=== PATIENT | male | born 1985 | race Two or more races ===

== ENCOUNTER 2017-09-25 05:57 | Emergency (ER) | payer OTHER ==
[~2017-09-25] VITALS: Ht 175.3 cm; Wt 88.5 kg
--- NOTE | 2017-09-25 05:57 | NUR ---
PT BB SELF FROM HOME C/C RIGHT LOWER BACK PAIN 11/27, +N/V. -DYSURIA. PT STATES "HX OF KIDNEY STONES, FEELS LIKE THE SAME THING". PT AMBULATED TO BED WITH A STEADY GAIT. PT SITTING IN BED IN NO ACUTE DISTRESS. PT PLACED ON MONITOR WITH VS WNL. AWAITING MD CHILEL.
[2017-09-25] MEDS ORDERED: IV NS 0.9% 1,000 ML BAG IV ONE ×2 (06:30→08:30)
[2017-09-25] MEDS ORDERED: MORPHINE SULFATE INJ 2 MG/ML DISP.SYRIN IV ONE (06:30)
[2017-09-25] MEDS ORDERED: ONDANSETRON HCL/PF 4 MG/2 ML VIAL IVP ONE (06:30)
--- NOTE | 2017-09-25 06:30 | NUR ---
PT AT CT SCAN
[2017-09-25] MEDS ORDERED: ONDANSETRON HCL/PF 4 MG/2 ML VIAL ONE ×2 (06:43→07:23)
[2017-09-25] MEDS ORDERED: MORPHINE SULFATE INJ 4 MG/ML DISP.SYRIN ONE (06:44)
[2017-09-25] MEDS ORDERED: KETOROLAC TROMETHAMINE INJ 30 MG/ML VIAL ONE (06:58)
[2017-09-25 06:59] LABS: BASOPHILS # (AUTO) 0.1 /CMM (0.0-0.2); BASOPHILS % (AUTO) 0.5 % (0.0-2.0); EOSINOPHILS % (AUTO) 0.6 % (0.0-6.0); HEMATOCRIT 44 % (39-51); HEMOGLOBIN 14.7 g/dL (13.5-17.5); LYMPHOCYTES # (AUTO) 1.3 /CMM (0.8-4.8); LYMPHOCYTES % (AUTO) 12.4 % (20.0-44.0); MEAN CORPUSCULAR HGB CONC 34 g/dl (31.0-36.0); MEAN CORPUSCULAR VOLUME 90 fL (80-96); MONOCYTES # (AUTO) 0.3 /CMM (0.1-1.30); MONOCYTES % (AUTO) 2.9 % (2.0-12.0); NEUTROPHILS # (AUTO) 8.9 /CMM (1.8-8.9); NEUTROPHILS % (AUTO) 83.6 % (43.0-81.0); PLATELET COUNT (AUTO) 203 /CMM (150-450); RDW COEFFICIENT OF VARIATION 11.9 (11.5-15.0); RED BLOOD CELL COUNT(AUTO) 4.84 MIL/uL (4.5-6.0); WHITE BLOOD COUNT (AUTO) 10.6 K/uL (4.3-11.0)
[2017-09-25 07:14] LABS: ALBUMIN 4.8 g/dL (3.4-5.0); BILIRUBIN,DIRECT 0.1 mg/dL (0.0-0.2); BILIRUBIN,TOTAL 0.9 mg/dL (0.2-1.0); CALCIUM, SERUM 9.4 mg/dL (8.5-10.1); CREATININE 1.2 mg/dL (0.6-1.3); POTASSIUM 3.9 mmol/L (3.5-5.1); TOTAL PROTEIN, SERUM 8.2 g/dL (6.4-8.2)
[2017-09-25] MEDS ORDERED: HYDROMORPHONE INJ 2 MG/ML DISP.SYRIN ONE (07:22)
[2017-09-25] MEDS ORDERED: ONDANSETRON HCL/PF - ER 4 MG/2 ML VIAL IV ONE (07:30)
[2017-09-25] MEDS ORDERED: HYDROMORPHONE INJ 2 MG/ML DISP.SYRIN IV ONE (07:30)
[2017-09-25] MEDS ORDERED: KETOROLAC TROMETHAMINE INJ 30 MG/ML VIAL IV ONE (07:30)
--- NOTE | 2017-09-25 08:00 | NUR ---
PT UNBALE TO GIVE URINE SAMPLE. AWARE.
[2017-09-25] MEDS ORDERED: PROCHLORPERAZINE EDISYLATE 10 MG/2 ML VIAL IVP ONE (08:30)
[2017-09-25] MEDS ORDERED: PROCHLORPERAZINE EDISYLATE 10 MG/2 ML VIAL ONE (08:31)
--- NOTE | 2017-09-25 08:36 | NUR ---
ADDENDUM IVF ENDTIMES: IVF medication(s): NS 1000 mg IVPB over 60 minutes: start time 835- end time 935; PIV # 20 Left AC
--- NOTE | 2017-09-25 09:00 | NUR ---
PT STILL UNABLE TO9 GIVE URINE. STATING THAT HE DOES NOT HAVE THE URGE. AWARE.L
--- NOTE | 2017-09-25 10:45 | NUR ---
dr rodrigues paged thru office
--- NOTE | 2017-09-25 11:29 | NUR ---
DR NIESHA ALMANZAR AND DR JACOBS WERE BOTH PAGED FOR MD CALL
--- NOTE | 2017-09-25 11:30 | NUR ---
[facility] CALLED, SPOKE WITH ALICIA.
--- NOTE | 2017-09-25 11:42 | NUR ---
[facility] CALLED, NO UROLOGY SERVICE WELL
--- NOTE | 2017-09-25 11:46 | NUR ---
CALLED [facility] AND SPOKE WITH BELA AND WAS INFORMED THAT THEY WERE AT FULL CAPACITY AND COULD NOT ACCEPT THIS PT AT THIS TIME
--- NOTE | 2017-09-25 11:52 | NUR ---
CALLED [facility] AND SPOKE TO DEE AND WAS TOLD THAT THEY WERE AT FULL CAPACITY AND COULD NOT ACCEPT AT THIS MOMENT.
--- NOTE | 2017-09-25 12:20 | NUR ---
[facility], DR CHADWICK, WAS PAGED.
--- NOTE | 2017-09-25 12:35 | NUR ---
URINE SAMPLE OBTAINED, SENT.
[2017-09-25 12:43] LABS: APPEARANCE,URINE Cloudy (CLEAR); BILIRUBIN,URINE Negative (NEGATIVE); BLOOD, URINE Large Ery/uL (NEGATIVE); KETONES,URINE 40 (NEGATIVE); LEUKOCYTE ESTERASE ,URINE Negative (NEGATIVE); NITRITE, URINE Negative (NEGATIVE); PROTEIN,URINE 30 mg/dl (NEGATIVE); UGLUCOSE Negative (NEGATIVE); UROBILINOGEN,URINE 0.2 EU/dL (0.2)
[2017-09-25 12:46] LABS: COLOR,URINE Dark Yellow (YELLOW)
--- NOTE | 2017-09-25 12:50 | NUR ---
CALLED [facility] AT [facility] AND REQUESTED A MED SURG BED FOR THIS PT. WILL GET A CALL BACK.
[2017-09-25 12:51] LABS: BACTERIA,URINE Rare /HPF (None Seen); RBC,URINE 80-100 /HPF (0-2); SQUAMOUS EPITHELIAL CELL,UR Few /HPF (None Seen)
--- NOTE | 2017-09-25 13:01 | NUR ---
REPAGED DR CHADWICK
--- NOTE | 2017-09-25 13:22 | NUR ---
IV removed. Catheter intact and site benign. Pressure and 4x4 applied to site. No bleeding noted.
--- NOTE | 2017-09-25 13:22 | NUR ---
Patient does not wish to proceed with medical care recommended by Dr. Nice. Patient given information related to possible complications, up to and including , which could occur as a result of leaving the hospital at this time. Patient verbalizes understanding of risks involved due to leaving against medical advice. Patient has signed AMA form.
[2017-09-25 13:25] VITALS: BP 135/77
== END 2017-09-25 13:25 | disposition left against medical advice (07) ==
LOC: ER 06:07
DX: N13.2 Hydronephrosis with renal and ureteral calculous obstruction (principal); R33.9 Retention of urine, unspecified; Z86.711 Personal history of pulmonary embolism; Z90.89 Acquired absence of other organs; Z88.1 Allergy status to other antibiotic agents; Z53.20 Procedure and treatment not carried out because of patient's decision for unspecified reasons
CPT/HCPCS: 36415; 74176; 80048; 80076; 81001; 85025; 96361; 96374; 96375; 96376; 99285; A4606; J0780; J1170; J1885; J2270; J2405 ×3; J7030 ×2; 81000-TC; Z7610